=== PATIENT | male | born 1970 | race Caucasian/White ===

== ENCOUNTER 2016-12-19 12:29 | Emergency (ER) | payer OTHER ==
[~2016-12-19] VITALS: Ht 170.2 cm; Wt 108.9 kg
[2016-12-19 14:13] VITALS: BP 125/95
--- NOTE | 2016-12-19 14:13 | ED AMS/SEIZURE/WEAK/DIZZY ---
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 STATES IT WAS A "NORMAL" DAY PRIOR TO SYMPTOMS STARTING. SPEAKING CLEARLY WITH NO DEFICITS NOTED. EKG COMPLETED. FINGERSTICK 108 Triage Nurses Notes Reviewed? yes Onset: Abrupt Duration: hour(s): (1), better Timing: recent history Injury Environment: home Severity: moderate Severity Numbers: 5 No Modifying Factors: none Associated Symptoms: DENIES HPI: 46-year-old male with no medical history presents to ER for evaluation after he developed sudden onset of dizziness lightheadedness and nausea while he was outside [facility]. He states he did not eat breakfast today. Patient denies any associated chest pain palpitations. No recent fall or head trauma. He states that he's had a headache however is not taken anything no vision changes no fever no chills. Denies any abdominal pain or no modifying factors or associated symptoms otherwise. He does not take any medication on a regular basis. He states since being here his symptoms have improved they're not worse with head movement (MICHELLE SANDERS) Past History Travel History Traveled to [place] past 21 day No Medical History Any Pertinent Medical History? 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 No (MICHELLE SANDERS) Review of Systems Review of Systems Constitutional: Reports: see HPI. All Other Systems: Reviewed and Negative Comments Review of systems: See HPI, All other systems negative. Constitutional, no chills no fever, no malaise HEENT: No visual changes no sore throat no congestion, Cardiovascular: No chest pain , no palpitation Skin: no rashes, no change in skin Respiratory: No dyspnea no cough no sputum GI: No nausea no vomiting, no diarrhea, : No dysuria Muscle skeletal: No joint pain, no joint swelling, no back pain, no neck pain, Neurologic: No numbness no confusion, no headache Psych: No stress Heme/endocrine: No bruising Immunology: No lymphadenopathy (MICHELLE SANDERS) Physical Exam Physical Exam General Appearance: well developed/nourished, alert, awake Comments: Well-developed well-nourished person in no acute distress HEENT: Normal EENT exam; PERRL, EOMI, no nystagmus. HEAD is atraumatic. moist mucous membranes. Neck: Supple, no lymphadenopathy, normal range of motion Back: Nontender, no CVA tenderness. Full range of motion Cardiovascular: Regular rate and rhythms no murmurs rubs Respiratory: Chest nontender.There were no bony deformities, no asymmetry. No respiratory distress. Patient speaking in full complete sentences. Breath sounds clear to auscultation bilaterally: NO W/R/R Abdomen: Soft, nontender nondistended, no appreciable organomegaly. Normal bowel sounds. No rebound/guarding, Extremity: No edema, full range of motion of extremities, normal and equal pulses bilaterally, 5 out of 5 strength noted to bilateral upper and lower extremities Neuro: Alert oriented x3, motor sensory normal, cranial nerves II through XII grossly intact. There were no obvious focal neurologic abnormalities. Skin: No appreciable rash on exposed skin, skin is warm and dry. Psych: Mood and affect is normal, memory and judgment is normal. Core Measures ACS in differential dx? Yes CVA/TIA Diagnosis: No Severe Sepsis Present: No Septic Shock Present: No (MICHELLE SANDERS) Progress Differential Diagnosis: arrythmia, alcohol intoxication, anemia, benign positional vertigo, CVA/stroke, dehydration, drug intoxication, electrolyte imbalance, intracranial Hem., intracranial mass/tumor, labrynthitis, meningitis, subarachnoid Hem., vertebrobasilar insuff, AMI Plan of Care: Orders Procedure Date/time Status CBC WITHOUT DIFFERENTIAL 12/19 1420 Complete BASIC METABOLIC PANEL 12/19 1420 Complete EKG 12/19 1235 Active Laboratory Tests 12/19/16 1430: Anion Gap 11, Estimated GFR > 60, BUN/Creatinine Ratio 16.7, Glucose 103 H, Calcium 8.9, CBC w Diff NO MAN DIFF REQ, RBC 4.83, MCV 88.1, MCH 30.0, RDW 13.7, MPV 7.5, Gran % 68.0, Lymphocytes % 25.1, Monocytes % 5.6, Eosinophils % 0.8, Basophils % 0.5, Absolute Granulocytes 3.1, Absolute Lymphocytes 1.1 L, Absolute Monocytes 0.3, Absolute Eosinophils 0, Absolute Basophils 0, PUBS MCHC 34.1 The patient was seen by myself upon immediately being brought back to the room 141 the patient was seen by myself immediately being brought back upon the room he states that he cannot stay for blood work IV hydration or imaging studies despite my recommendations stating he has a legal matter yesterday 10 2 at 2:30, the patient was seen by Dr. TOBIAS as well and despite our best recommendations the patient is not willing to stay and signed out AGAINST MEDICAL ADVICE I discussed with him the risks and arms of doing so I will call him when the blood work has resulted 1520 I spoke with the patient regarding all his lab results I discussed with him need to follow-up with his primary care physician tomorrow however again stressed the need if his symptoms persist today to cedar follow-up with a hospital in [place] where he lives or to return here. He states that he had 2 large Gatorade after leaving and is feeling much improved (MICHELLE SANDERS) Initial ED EKG: normal intervals, normal p-waves, normal QRS complex, normal sinus rhythm (70) (MICHELLE SANDERS) Departure Departure Time of Disposition: 1419 Disposition: HOME OR SELF CARE Condition: Stable Clinical Impression Primary Impression: Lightheadedness Referrals: PATIENT HAS NO PRIMARY CARE DR (PCP/Family) Additional Instructions: As discussed your signing out AGAINST MEDICAL ADVICE as I recommended staying for IV hydration pain control and a CAT scan of her head in addition to labs. Return immediately if you change your mind and wish to be properly evaluated. Zofran if needed for nausea and this was sent to your pharmacy Tylenol every 4-6 hours. Departure Forms: Customer Survey General Discharge Information Prescriptions: Current Visit Scripts Ondansetron (Zofran Odt) 1 TAB SL TID PRN NAUSEA #10 TAB (JOSSIE GARIBAY,MICHELLE) Departure Comments 12/19/16 3:24 pm I've seen and personally examined the patient and I agree with the PAs evaluation. The patient presented with dizziness and headache. He says his symptoms have resolved somewhat. He was unable to stay for blood work or further evaluation. The risks were explained to the patient. He's was instructed to follow-up in the emergency department with his primary care doctor as soon as possible. (SHILPA TOBIAS DO)
[2016-12-19] MEDS ORDERED: ZOFRAN ODT4 M1 SL (14:21)
[2016-12-19 14:55] LABS: ABSOLUTE BASOPHIL COUNT 0 /CUMM (0.0-0.2); ABSOLUTE EOSINOPHIL COUNT 0 /CUMM (0.0-0.7); ABSOLUTE GRANULOCYTE CT 3.1 /CUMM (1.4-6.5); ABSOLUTE LYMPH COUNT 1.1 /CUMM (1.2-3.4); ABSOLUTE MONOCYTE COUNT 0.3 /CUMM (0.10-0.60); BASOPHIL % 0.5 % (0.0-2.0); EOSINOPHIL % 0.8 % (0-5); HEMATOCRIT 42.6 % (42-52); MEAN CORPUSCULAR HGB CONC 34.1 G/DL (33.0-37.0); MEAN CORPUSCULAR VOLUME 88.1 FL (80.0-94.0); MEAN PLATELET VOLUME 7.5 FL (7.4-10.4); PLATELET COUNT 177 /CUMM (130-400); RBC DISTRIBUTION WIDTH 13.7 % (11.5-14.5); RED BLOOD CELL CT 4.83 /CUMM (4.70-6.10); WHITE BLOOD CELL COUNT 4.6 /CUMM (4.8-10.8)
== END 2016-12-19 14:33 | disposition left against medical advice (07) ==
LOC: ERH 12:29
PROVIDERS: Physician Assistant Medical
DX: R42 Dizziness and giddiness (principal)
CPT/HCPCS: 93005; 93010; J3101